=== PATIENT | male | born 1975 | race Two or more races ===

== ENCOUNTER 2019-08-27 09:09 | Emergency (ER) | payer OTHER ==
[~2019-08-27] VITALS: Ht 165.1 cm; Wt 101.7 kg
[~2019-08-27 09:09] MED LIST: ATOR-2 PO; IBUP-1222 PO; LISI-170 PO; OMEP-110 PO; SUCR1ORA5 PO
[2019-08-27] MEDS ORDERED: FLUORESCEIN OPHTHALMIC 1 MG STRIP ONE (09:31)
[2019-08-27] MEDS ORDERED: PROPARACAINE OPHTH 0.5%, 15ML ONE (09:31)
[2019-08-27] MEDS ORDERED: DIPH,PERTUSS(ACELL),TET VAC/PF 0.5 ML IM-VACC ONE ×2 (10:13→11:00)
[2019-08-27 10:22] VITALS: BP 155/98
--- NOTE | 2019-08-27 10:51 | NUR ---
per mini shifter Althea, pt was unable to read any line of visual acuity chart with right eye, pt states this is baseline d/t ocular trauma 10 yrs ago to rt eye. DAMIAN Bhagat notified. instructed RN to discharge pt. pt given dc instructions and script, educated regarding rx for eye ointment. pt a&o, resps even and unlabored, neuro intact, amb to dc desk with steady gait. pt verbalizes understanding of plan for abx and optho f/u.
== END 2019-08-27 10:52 | disposition home or self-care (01) ==
LOC: ED 10:29
DX: S05.01XA Injury of conjunctiva and corneal abrasion without foreign body, right eye, initial encounter (principal); X58.XXXA Exposure to other specified factors, initial encounter; Y93.89 Activity, other specified; Y92.89 Other specified places as the place of occurrence of the external cause; Y99.8 Other external cause status
CPT/HCPCS: 90471; 90715; 99283